=== PATIENT | female | born 1990 | race Caucasian/White ===

== ENCOUNTER 2017-08-23 16:29 | Emergency (ER) | payer MEDICAID ==
[~2017-08-23] VITALS: Ht 167.6 cm; Wt 91.4 kg
[~2017-08-23 16:29] MED LIST: ACET325T14 PO; HYDR25TA6 PO; IBUP-1222 PO; LABE200T3 PO; LABE300T PO; NIFE60TA19 PO; OXYC-302 PO; PREN1TAB85 PO
[2017-08-23] MEDS ORDERED: ONDANSETRON 2MG/ML, 2ML ONE (17:14)
[2017-08-23] MEDS ORDERED: DEXAMETHASONE 4 MG/ML, 1ML ONE (17:14)
[2017-08-23] MEDS ORDERED: LABETALOL 5MG/ML, 20ML IVPush STA (17:18)
[2017-08-23 17:22] LABS: HEMATOCRIT 45.3 % (34.6-47.8); HEMOGLOBIN 15.4 g/dL (11.7-16.4); WHITE BLOOD COUNT 7.8 x10^3/uL (3.4-10)
[2017-08-23] MEDS ORDERED: SODIUM CHLORIDE FLUSH 10ML SYR IVF ONE (17:30)
[2017-08-23] MEDS ORDERED: DEXAMETHASONE 4 MG/ML, 1ML IVPush ONE (17:30)
[2017-08-23] MEDS ORDERED: ONDANSETRON 2MG/ML, 2ML IVPush ONE (17:30)
[2017-08-23] MEDS ORDERED: SODIUM CHLORIDE 0.9% 1,000ML IVBOLUS ONE (17:30)
[2017-08-23 17:32] LABS: ASPARTATE AMINO TRANSFERASE 47 U/L (15-37); BLOOD UREA NITROGEN 10 mg/dL (7-18)
[2017-08-23] MEDS ORDERED: LABETALOL 5MG/ML, 20ML ONE (17:37)
[2017-08-23 19:36] VITALS: BP 160/121
== END 2017-08-23 19:39 | disposition home or self-care (01) ==
LOC: ED 17:59
DX: J20.9 Acute bronchitis, unspecified (principal); J02.8 Acute pharyngitis due to other specified organisms; B97.89 Other viral agents as the cause of diseases classified elsewhere; I10 Essential (primary) hypertension
CPT/HCPCS: 36415; 71020; 80053; 83690; 84703; 85025; 93005; 96361; 96374; 96375; 99285; J1100; J2405; J7030